=== PATIENT | female | born 1955 | race Caucasian/White ===

== ENCOUNTER 2023-01-24 13:38 | Emergency (ER) | payer OTHER, SELFPAY ==
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
[2023-01-24 13:40] VITALS: BP 160/62; PULSE 84; RESP 18; TEMP 36.7; O2SAT 99; BMI 45.7
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
== END 2023-01-24 15:11 | disposition home or self-care (01) ==
PROVIDERS: Emergency Provider Student in an Organized Health Care Education/Training Program
DX: M25.512 Pain in left shoulder (principal); Z79.899 Other long term (current) drug therapy
CPT/HCPCS: 73030; 99282; 99283